=== PATIENT | female | born 1970 | race Caucasian/White ===

== ENCOUNTER 2017-08-13 13:53 | Emergency (ER) | payer MEDICAID ==
[2017-08-13 14:01] VITALS: RESP 18; TEMP 99.3; O2SAT 97
--- NOTE | 2017-08-13 15:03 | EDPHY ---
H & P Stated Complaint: cough, ST, diarrhea, body aches Time Seen by Provider: 08/13/17 14:06 HPI/ROS: HPI CHIEF COMPLAINT: Multiple complaints, sore throat, chills, cough, diarrhea, sinus pain, sinus congestion HISTORY OF PRESENT ILLNESS: This patient very pleasant 46-year-old female, otherwise healthy no significant medical history she presents emergency room with multitude of complaints which include chills, sore throat, cough nonproductive, diarrhea, sinus pain, sinus congestion times 24-48 hours. She thought she may have the flu. She has not any vomiting. No recorded temperature at home. Denies chest pain or shortness of breath. Past Medical History: Denies significant medical history Past Surgical History: Social History: Smokes Tobacco daily, denies drugs, alcohol Family History: Noncontributory ROS REVIEW OF SYSTEMS: A comprehensive 10 point review of systems is otherwise negative aside from elements mentioned in the history of present illness. Exam Constitutional appears well nontoxic in no acute distress triage nursing summary reviewed, vital signs reviewed, awake/alert. Eyes normal conjunctivae and sclera, EOMI, PERRLA. HENT posterior pharynx unremarkable, bilateral TMs clear, tender palpation over the maxillary sinus bilaterally, normal inspection, atraumatic, moist mucus membranes, no epistaxis, neck supple/ no meningismus, no raccoon eyes. Respiratory clear to auscultation bilaterally, normal breath sounds, no respiratory distress, no wheezing. Cardiovascular rate normal, regular rhythm, no murmur, no edema, distal pulses normal. Gastrointestinal soft, non-tender, no rebound, no guarding, normal bowel sounds, no distension, no pulsatile mass. Genitourinary no CVA tenderness. Musculoskeletal no midline vertebral tenderness, full range of motion, no calf swelling, no tenderness of extremities, no meningismus, good pulses, neurovascularly intact. Skin pink, warm, & dry, no rash, skin atraumatic. Neurologic awake, alert and oriented x 3, AAOx3, moves all 4 extremities equally, motor intact, sensory intact, CN II-XII intact, normal cerebellar, normal vision, normal speech. Psychiatric normal mood/affect. Heme/Lymph/Immune no lymphadenopathy. Differential Diagnosis: Includes but is not limited to in a particular order, upper respiratory tract infection, viral syndrome, influenza, strep pharyngitis , sinusitis, bronchitis, tobacco abuse, flu-like illness, flu Medical Decision Making: Plan for this patient rapid strep, flu. Re-evaluation: This patient appears well nontoxic no acute distress normal vital signs. Negative influenza, negative strep. Will treat for acute sinusitis. Azithromycin prescription provided, albuterol inhaler for cough, I recommend refraining from smoking. Additionally Mucinex D congestion. Return emergency room if worsening symptoms questions concerns she understands. Source: Patient - Personal History LMP (Females 10-55): Post Menopausal Current Tetanus Diphtheria and Acellular Pertussis (TDAP): Yes Tetanus Vaccine Date: 2012 - Medical/Surgical History Hx Asthma: No Hx Chronic Respiratory Disease: No Hx Diabetes: No Hx Cardiac Disease: No Hx Renal Disease: No Hx Cirrhosis: No Hx Alcoholism: No Hx HIV/AIDS: No Hx Splenectomy or Spleen Trauma: No Other PMH: - Social History Smoking Status: Current every day smoker Constitutional: Initial Vital Signs Temperature (C) 37.4 C 08/13/17 13:57 Heart Rate 67 08/13/17 13:57 Respiratory Rate 18 08/13/17 13:57 Blood Pressure 139/79 H 08/13/17 13:57 O2 Sat (%) 97 08/13/17 13:57 Allergies/Adverse Reactions: No Known Allergies Allergy (Unverified 08/13/17 14:01) Home Medications: Medication Instructions Recorded AZITHROMYCIN [Z-PACK] 250 mg PO DAILY #6 tab 08/13/17 Albuterol [Proventil Inhaler HFA 1 - 2 puffs IH Q4H #1 mdi 08/13/17 (*)] guaiFENesin [Guaifenesin ER] 600 mg PO BID #14 tab.er.12h 08/13/17 Medical Decision Making - Data Points Laboratory Results: 08/13/17 08/13/17 08/13/17 Unknown 14:10 14:10 Influenza A,B Rapid NEGATIVE FOR FLU (NEGATIVE) Group A Strep Screen NEGATIVE (NEGATIVE) Group A Strep DNA Pending Departure - Departure Disposition: Home, Routine, Self-Care Clinical Impression: Sinusitis Qualifiers: Sinusitis location: unspecified location Chronicity: acute Recurrence: non- recurrent Qualified Code(s): J01.90 - Acute sinusitis, unspecified Condition: Good Instructions: Sinusitis (ED) Additional Instructions: 1. Drink lots of fluids stay well-hydrated. 2. Tylenol Motrin every 4-6 hours alternating for pain and fever control. 3. Antibiotic as prescribed. 4. Refrain from smoking. Prescriptions: Albuterol [Proventil Inhaler HFA (*)] 1 - 2 puffs IH Q4H #1 mdi AZITHROMYCIN [Z-PACK] 250 mg PO DAILY #6 tab guaiFENesin [Guaifenesin ER] 600 mg PO BID #14 tab.er.12h
[2017-08-13 15:30] VITALS: BP 128/70; PULSE 68
== END 2017-08-13 15:28 | disposition home or self-care (01) ==
LOC: CED 13:53
DX: J01.90 Acute sinusitis, unspecified (principal); F17.200 Nicotine dependence, unspecified, uncomplicated
CPT/HCPCS: 87400-PO; 87880-PO